=== PATIENT | male | born 1950 | race Caucasian/White ===

== ENCOUNTER 2024-01-28 09:08 | Outpatient (CLI) | payer MEDICARE, BC | END 2024-01-28 09:09 | disposition home or self-care (01) | LOC: CSHWCC 09:08 | PROVIDERS: ATTEND Nurse Practitioner Family | DX: I87.313 Chronic venous hypertension (idiopathic) with ulcer of bilateral lower extremity (principal); L97.312 Non-pressure chronic ulcer of right ankle with fat layer exposed; L97.322 Non-pressure chronic ulcer of left ankle with fat layer exposed; C61 Malignant neoplasm of prostate; I50.22 Chronic systolic (congestive) heart failure | CPT/HCPCS: 11042; G0463; 99204 ==

== ENCOUNTER 2024-02-11 14:28 | Outpatient (CLI) | payer MEDICARE, BC | END 2024-02-11 14:29 | disposition home or self-care (01) | LOC: CSHWCC 14:28 | PROVIDERS: ATTEND Nurse Practitioner Family | DX: I87.313 Chronic venous hypertension (idiopathic) with ulcer of bilateral lower extremity (principal); L97.312 Non-pressure chronic ulcer of right ankle with fat layer exposed; L97.322 Non-pressure chronic ulcer of left ankle with fat layer exposed; I50.22 Chronic systolic (congestive) heart failure; C61 Malignant neoplasm of prostate | CPT/HCPCS: 11042; 97597 ==

== ENCOUNTER 2024-02-18 15:28 | Outpatient (CLI) | payer MEDICARE, BC | END 2024-02-18 15:29 | disposition home or self-care (01) | LOC: CSHWCC 15:28 | PROVIDERS: ATTEND Nurse Practitioner Family | DX: I87.313 Chronic venous hypertension (idiopathic) with ulcer of bilateral lower extremity (principal); L97.312 Non-pressure chronic ulcer of right ankle with fat layer exposed; L97.322 Non-pressure chronic ulcer of left ankle with fat layer exposed; C61 Malignant neoplasm of prostate; I50.22 Chronic systolic (congestive) heart failure | CPT/HCPCS: 99212; G0463 ==

== ENCOUNTER 2024-03-03 11:33 | Outpatient (CLI) | payer MEDICARE, BC | END 2024-03-03 11:34 | disposition home or self-care (01) | LOC: CSHWCC 11:33 | PROVIDERS: ATTEND Nurse Practitioner Family | DX: I87.313 Chronic venous hypertension (idiopathic) with ulcer of bilateral lower extremity (principal); C61 Malignant neoplasm of prostate; I50.22 Chronic systolic (congestive) heart failure; L97.919 Non-pressure chronic ulcer of unspecified part of right lower leg with unspecified severity; L97.929 Non-pressure chronic ulcer of unspecified part of left lower leg with unspecified severity | CPT/HCPCS: 99212; G0463 ==